=== PATIENT | male | born 1950 | race Caucasian/White ===

== ENCOUNTER 2019-01-25 20:23 | Inpatient (IN) | payer OTHER ==
[~2019-01-25] VITALS: Ht 170.2 cm; Wt 80.3 kg
[2019-01-25 20:29] VITALS: Ht 170.2 cm; Wt 80.3 kg
[2019-01-25 21:46] LABS: BASOPHIL % 0.8 % (0-2)
[2019-01-25 21:50] LABS: CALCIUM 8.4 mg/dL (8.5-10.1); CARBON DIOXIDE 29.6 mmol/L (21-32); CHLORIDE SERUM 104 mmol/L (98-107); GFR1 > 60 mL/min; GLUCOSE SERUM 96 mg/dL (74-106); POTASSIUM SERUM 4.2 mmol/L (3.5-5.1); SODIUM SERUM 140 mmol/L (136-145)
[2019-01-25 21:55] LABS: ALBUMIN 3.6 g/dL (3.4-5.0); ALKALINE PHOSPHATASE 140 U/L (46-116); ALT/SGPT 202 U/L (16-63); AST/SGOT 152 U/L (15-37); BILIRUBIN TOTAL 0.9 mg/dL (0.20-1.00); TOTAL PROTEIN, SERUM 7.7 g/dL (6.4-8.2)
[2019-01-25 22:00] LABS: PLATELET COUNT 101 x10^3mcL (130-400); RED CELL DISTRIBUTION WIDTH 14.7 % (11.5-14.5)
[2019-01-26] VITALS (7 sets, daily range): BP systolic 147–193; BP diastolic 71–87
[2019-01-26 01:20] LABS: UA SPECIFIC GRAVITY >=1.030 (1.005-1.035); microscopic required? YES; urine erythrocyte NEGATIVE (NEGATIVE)
[2019-01-26 01:43] LABS: AMPHETAMINE QUAL UR NONE DETECTED (See below)
[2019-01-26 03:07] LABS: MAGNESIUM 1.7 mg/dL (1.8-2.4); PHOSPHOROUS 3.3 mg/dL (2.5-4.9)
[2019-01-26 03:12] LABS: CHOLESTEROL/HDL RATIO 6.2
[2019-01-27 05:33] VITALS: BP 125/71
[2019-01-27 06:59] LABS: BASOPHIL % 0.7 % (0-2)
[2019-01-27 07:12] LABS: CALCIUM 8.4 mg/dL (8.5-10.1); CARBON DIOXIDE 30.2 mmol/L (21-32); CHLORIDE SERUM 105 mmol/L (98-107); CREATININE SERUM 1.1 mg/dL (0.7-1.3); GFR1 > 60 mL/min; GLUCOSE SERUM 109 mg/dL (74-106); MAGNESIUM 2.1 mg/dL (1.8-2.4); PHOSPHOROUS 3.5 mg/dL (2.5-4.9); SODIUM SERUM 140 mmol/L (136-145)
[2019-01-27 07:31] LABS: PLATELET COUNT 99 x10^3mcL (130-400); RED CELL DISTRIBUTION WIDTH 14.6 % (11.5-14.5)
[2019-01-27 10:42] VITALS: BP 122/63
[2019-01-27 12:30] VITALS: BP 149/76
[2019-01-27 17:51] VITALS: BP 161/87
[2019-01-27 21:14] VITALS: BP 166/83
[2019-01-28 00:10] VITALS: BP 157/69
[2019-01-28 06:07] VITALS: BP 127/69
[2019-01-28 09:10] VITALS: BP 146/74
[2019-01-28 11:54] VITALS: BP 149/80
[2019-01-28] MEDS ORDERED: TOP50 PO (13:45)
[2019-01-28] MEDS ORDERED: ZES10 PO (13:46)
[2019-01-28 14:24] VITALS: BP 149/80
== END 2019-01-28 15:18 | disposition home or self-care (01) | DRG 206 ==
LOC: ED 20:23 → DU 01-26 00:09 → MU 01-28 13:25
PROVIDERS: Emergency Medicine; ADMIT Internal Medicine
DX: M94.0 Chondrocostal junction syndrome [Tietze] (principal); I16.0 Hypertensive urgency; K21.9 Gastro-esophageal reflux disease without esophagitis; B18.2 Chronic viral hepatitis C; F12.10 Cannabis abuse, uncomplicated; R74.0 Nonspecific elevation of levels of transaminase and lactic acid dehydrogenase [LDH]; Z68.29 Body mass index [BMI] 29.0-29.9, adult
CPT/HCPCS: 83880; 85378; J0360; Q0092